=== PATIENT | male | born 1960 | race American Indian/Alaskan Native ===

== ENCOUNTER 2021-08-26 23:08 | Inpatient (IN) | payer OTHER ==
[2021-08-27] MEDS ORDERED: ASPIRIN 325 MG TAB PO ONE (02:14)
[2021-08-27] MEDS ORDERED: SODIUM CHLORIDE 0.9% 1000 ML 1,000 ML IV ONE (02:14)
[2021-08-27] MEDS ORDERED: KETOROLAC 30 MG/1 ML INJ IV ONE (02:15)
--- NOTE | 2021-08-27 02:55 | XRay Report ---
CHEST 1 VIEW 08/27/2021 2:36 AM INDICATION / CLINICAL INFORMATION: Chest Pain. COMPARISON: None available. FINDINGS: SUPPORT DEVICES: None. HEART / MEDIASTINUM: No significant abnormality. LUNGS / PLEURA: No significant pulmonary or pleural abnormality. No pneumothorax. ADDITIONAL FINDINGS: No significant additional findings. IMPRESSION: 1. No acute findings. Signer Name: Feliberto Jacobs DO Signed: 08/27/2021 2:51 AM Workstation Name: [id number]
[2021-08-27 03:00] LABS: Basophils # (Auto) 0.1 K/mm3 (0.0-0.1); Basophils % (Auto) 1.1 % (0.0-1.8); Eosinophils # (Auto) 0.2 K/mm3 (0.0-0.4); Eosinophils % (Auto) 4.4 % (0.0-4.3); Hematocrit 39.8 % (35.5-45.6); Hemoglobin 13.1 gm/dl (11.8-15.2); Lymphocytes # (Auto) 1.7 K/mm3 (1.2-5.4); Mean Corpuscular HGB Conc 33 % (32-34); Mean Corpuscular Volume 91 fl (84-94); Monocytes # (Auto) 0.5 K/mm3 (0.0-0.8); Monocytes % (Auto) 10.4 % (0.0-7.3); Platelet Count 246 K/mm3 (140-440); Red Blood Count 4.39 M/mm3 (3.65-5.03); Red Cell Distribution Width 13.8 % (13.2-15.2)
[2021-08-27 03:19] LABS: Alanine Aminotransferase 15 units/L (7-56); Albumin 4.2 g/dL (3.9-5); BUN/Creatinine Ratio 20; Blood Urea Nitrogen 18 mg/dL (9-20); Calcium 10.2 mg/dL (8.4-10.2); Hemolysis Index 7
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
--- NOTE | 2021-08-27 05:55 | Emergency Department Report ---
ED General Adult HPI - General Chief complaint: Extremity Injury, Upper Stated complaint: LF ARM PAIN, HYPERTENTION Time Seen by Provider: 08/27/21 02:08 Source: EMS Mode of arrival: Stretcher Limitations: No Limitations - History of Present Illness Initial comments: LEFT ARM PAIN, DENIES INJURY, TRAUMA AT THIS TIME, LEFT SIDE PAIN NO RADIATION, DENIES CHEST PAIN -: Sudden, hour(s) Location: chest Radiation: non-radiation Severity scale (0 -10): 6 Quality: aching Consistency: intermittent Improves with: none Associated Symptoms: denies: denies other symptoms, confusion, chest pain, cough Treatments Prior to Arrival: none - Related Data Allergies Allergy/AdvReac Type Severity Reaction Status Date / Time No Known Allergies Allergy Verified 08/27/21 02:46 ED Review of Systems ROS: Stated complaint: LF ARM PAIN, HYPERTENTION Other details as noted in HPI Constitutional: denies: chills, fever Eyes: denies: eye pain, eye discharge, vision change ENT: denies: ear pain, throat pain Respiratory: denies: cough, shortness of breath, wheezing Cardiovascular: denies: chest pain, palpitations Endocrine: no symptoms reported Gastrointestinal: denies: abdominal pain, nausea, diarrhea Genitourinary: denies: urgency, dysuria Musculoskeletal: denies: back pain, joint swelling, arthralgia Skin: denies: rash, lesions Neurological: denies: headache, weakness, paresthesias Psychiatric: denies: anxiety, depression Hematological/Lymphatic: denies: easy bleeding, easy bruising ED Past Medical Hx - Past Medical History Previous Medical History?: No - Surgical History Past Surgical History?: No - Social History Smoking Status: Unknown if ever smoked ED Physical Exam - General Limitations: No Limitations General appearance: alert, in no apparent distress - Head Head exam: Present: atraumatic, normocephalic - Eye Eye exam: Present: normal appearance - ENT ENT exam: Present: mucous membranes moist - Neck Neck exam: Present: normal inspection - Respiratory Respiratory exam: Present: normal lung sounds bilaterally. Absent: respiratory distress - Cardiovascular Cardiovascular Exam: Present: regular rate, normal rhythm. Absent: systolic murmur, diastolic murmur, rubs, gallop - GI/Abdominal GI/Abdominal exam: Present: soft, normal bowel sounds - Rectal Rectal exam: Present: deferred - Extremities Exam Extremities exam: Present: normal inspection - Back Exam Back exam: Present: normal inspection - Neurological Exam Neurological exam: Present: alert, oriented X3 - Psychiatric Psychiatric exam: Present: normal affect, normal mood - Skin Skin exam: Present: warm, dry, intact, normal color. Absent: rash ED Course Vital Signs 08/26/21 08/27/21 08/27/21 23:21 03:29 03:30 Temperature 99 F Pulse Rate 88 68 Respiratory 18 18 18 Rate Blood Pressure 200/112 Blood Pressure 163/86 [Left] O2 Sat by Pulse 100 98 Oximetry ED Medical Decision Making - Lab Data Result diagrams: 08/27/21 02:42 08/27/21 02:42 - EKG Data -: EKG Interpreted by Me - EKG Data Interpretation: other (mobitz type 2 ) - Radiology Data Radiology results: report reviewed, image reviewed Critical care attestation.: If time is entered above; I have spent that time in minutes in the direct care of this critically ill patient, excluding procedure time. ED Disposition Clinical Impression: Mobitz II, Left shoulder pain Disposition: ADMITTED INPATIENT Is pt being admited?: Yes Does the pt Need Aspirin: Yes Condition: Stable Referrals: PRIMARY CARE, [Primary Care Provider] - 3-5 Days
[2021-08-27] MEDS ORDERED: ONDANSETRON 4 MG/2 ML INJ IV PRN (06:07)
[2021-08-27] MEDS ORDERED: traMADol 50 MG TAB PO PRN (06:07)
[2021-08-27] MEDS ORDERED: ACETAMINOPHEN 325 MG TAB PO PRN ×2 (06:07)
[2021-08-27] MEDS ORDERED: MORPHINE 2 MG/1 ML INJ IV PRN (06:12)
[2021-08-27] MEDS ORDERED: MORPHINE 4 MG/1 ML INJ IV PRN ×2 (06:12)
[2021-08-27] MEDS ORDERED: MAGNESIUM HYDROXIDE (MOM) ORAL LIQD UDC PO PRN (06:12)
--- NOTE | 2021-08-27 06:25 | History and Physical Report ---
History of Present Illness Date of examination: 08/27/21 Date of admission: 08/27/2021 Chief complaint: Chest pain History of present illness: 60-year-old -[place] male with no significant past medical history presented to the emergency room today complaining of left shoulder pain radiating towards the left upper chest. Symptoms were said to have started overnight. He denies any injury to the left shoulder. He denies any fall. Patient denies any nausea vomiting and no abdominal pain. Denies any headache or dizziness and no diaphoresis. Upon arrival in the emergency room, her initial EKG was sinus tach which later transitioned into Mobitz type I. Chest x-ray and shoulder history were unremarkable. Labs were also unremarkable. Patient being admitted of with chest pain and abnormal EKG. Past History Past Medical History: No medical history Past Surgical History: No surgical history Social history: smoking (Current daily smoker) Family history: no significant family history Medications and Allergies Allergies Allergy/AdvReac Type Severity Reaction Status Date / Time No Known Allergies Allergy Verified 08/27/21 02:46 Review of Systems Constitutional: no fever, no chills Ears, nose, mouth and throat: no nasal congestion, no sore throat Cardiovascular: chest pain, no orthopnea, no palpitations Respiratory: no cough, no shortness of breath Gastrointestinal: no abdominal pain, no nausea, no vomiting, no diarrhea Genitourinary Male: no dysuria, no hematuria, no flank pain Integumentary: no rash, no pruritis Neurological: no headaches, no confusion Psychiatric: no anxiety, no depression Endocrine: no polyphagia, no polydipsia, no polyuria Exam - Constitutional Vitals: Temp Pulse Resp BP Pulse Ox 99 F 68 18 163/86 98 08/26/21 23:21 08/27/21 03:30 08/27/21 03:59 08/27/21 03:30 08/27/21 03:30 General appearance: Present: no acute distress, well-nourished - EENT Eyes: Present: PERRL, EOM intact. Absent: scleral icterus ENT: hearing intact, clear oral mucosa, dentition normal - Neck Neck: Present: supple, normal ROM - Respiratory Respiratory effort: normal Respiratory: bilateral: CTA - Cardiovascular Rhythm: regular Heart Sounds: Present: S1 & S2. Absent: gallop, systolic murmur, diastolic murmur, rub, click - Extremities Extremities: no ischemia, pulses intact, pulses symmetrical, No edema, normal temperature, normal color, Full ROM Peripheral Pulses: within normal limits - Abdominal General gastrointestinal: Present: soft, non-tender, non-distended, normal bowel sounds. Absent: mass - Integumentary Integumentary: Present: clear, warm, dry, normal turgor. Absent: rash - Musculoskeletal Musculoskeletal: strength equal bilaterally - Psychiatric Psychiatric: appropriate mood/affect, intact judgment & insight, memory intact - Neurologic Neurologic: CNII-XII intact, no focal deficits, moves all extremities HEART Score - HEART Score History: Moderately suspicious EKG: Non-specific Age: 45-65 Risk factors: 1-2 risk factors Troponin: Troponin T < 0.010 ng/mL (0.00-0.029) 08/27/21 02:42 Troponin: < normal limit HEART Score: 4 Results - Labs CBC & Chem 7: 08/27/21 02:42 08/27/21 06:23 Labs: Abnormal lab results 08/27/21 08/27/21 Range/Units 02:42 02:42 Elbert % (Auto) 10.4 H (0.0-7.3) % Eos % (Auto) 4.4 H (0.0-4.3) % Glucose 115 H (75-100) mg/dL Assessment and Plan - Patient Problems (1) Chest pain Current Visit: Yes Status: Acute Plan to address problem: Patient admitted and placed on telemetry. We will check serial cardiac enzymes. Will request cardiology evaluation and recommendation. (2) Mobitz II Current Visit: Yes Status: Acute Plan to address problem: Patient will be closely monitored on telemetry. We will also monitor chemistry. Await cardiology evaluation and recommendation. (3) DVT prophylaxis Current Visit: Yes Status: Acute Plan to address problem: Patient placed on subcutaneous heparin. (4) Full code status Current Visit: Yes Status: Acute Plan to address problem: Patient is full code.
[2021-08-27 07:24] LABS: BUN/Creatinine Ratio 20; Blood Urea Nitrogen 16 mg/dL (9-20); Calcium 9.1 mg/dL (8.4-10.2); Hemolysis Index 2
[2021-08-27] MEDS ORDERED: REGADENOSON 0.4 MG/5 ML INJ IV ONE (08:29)
--- NOTE | 2021-08-27 11:43 | Vascular Lab Report ---
DUPLEX DOPPLER UPPER EXTREMITY VENOUS, LEFT INDICATION / CLINICAL INFORMATION: PAIN; R/O DVT. TECHNIQUE: Duplex doppler imaging was performed through the veins of the left upper extremity using venous compr ession and other maneuvers. COMPARISON: None available. FINDINGS: LEFT INTERNAL JUGULAR VEIN: Negative. LEFT SUBCLAVIAN VEIN: Negative. LEFT AXILLARY VEIN: Negative. LEFT BRACHIAL VEIN: Negative. LEFT FOREARM VEINS: Negative. LEFT BASILIC VEIN (SUPERFICIAL): Negative. ADDITIONAL FINDINGS: None. IMPRESSION: 1. No sonographic evidence for DVT. Signer Name: Wilson Cheng MD Signed: 08/27/2021 11:38 AM Workstation Name: [id number]
--- NOTE | 2021-08-27 12:22 | Consultation ---
History of Present Illness Consult date: 08/27/21 Consult reason: chest pain History of present illness: The patient is a 60-year-old man with a history of hypertension, noncompliant with medical therapy or outpatient physician care. He reports no prior cardiac history. He presents to the hospital with predominantly left arm pain, which radiated to the shoulder. There was some worsening of the pain with movement of the left arm. There was no exertional component. He presented to the emergency room and was evaluated and referred for admission. An x-ray of the left should er was reported unremarkable. Cardiac work-up so far, EKG was a sinus rhythm, with a single cycle of Wenckebach Mobitz 1, otherwise normal ECG, no ST or T wave changes of ischemia. The serial troponin levels were normal. Chest x-ray was normal-sized cardiac silhouette and clear lungs. Past History Past Medical History: hypertension Past Surgical History: No surgical history Social history: smoking (Current daily smoker) Family history: no significant family history Medications and Allergies Allergies Allergy/AdvReac Type Severity Reaction Status Date / Time No Known Allergies Allergy Verified 08/27/21 02:46 Active Meds: Active Medications Acetaminophen (Acetaminophen 325 Mg Tab) 650 mg PO Q4H PRN PRN Reason: Pain MILD(1-3)/Fever >100.5/MUNOZ Aspirin (Aspirin Ec 325 Mg Tab) 325 mg PO QDAY RONNI Magnesium Hydroxide (Magnesium Hydroxide (Mom) Oral Liqd Udc) 30 ml PO Q4H PRN PRN Reason: Constipation Morphine Sulfate (Morphine 2 Mg/1 Ml Inj) 2 mg IV Q4H PRN PRN Reason: Pain, Moderate (4-6) Morphine Sulfate (Morphine 4 Mg/1 Ml Inj) 4 mg IV Q4H PRN PRN Reason: Pain , Severe (7-10) Morphine Sulfate (Morphine 4 Mg/1 Ml Inj) 2 mg IV Q5MIN PRN PRN Reason: Chest Pain unrelieved by NTG Ondansetron HCl (Ondansetron 4 Mg/2 Ml Inj) 4 mg IV Q8H PRN PRN Reason: Nausea And Vomiting Sodium Chloride (Sodium Chloride 0.9% 10 Ml Flush Syringe) 10 ml IV BID RONNI Sodium Chloride (Sodium Chloride 0.9% 10 Ml Flush Syringe) 10 ml IV PRN PRN PRN Reason: LINE FLUSH Tramadol HCl (Tramadol 50 Mg Tab) 50 mg PO Q6H PRN PRN Reason: Pain, Moderate (4-6) Review of Systems Cardiovascular: chest pain, no orthopnea, no palpitations, no rapid/irregular heart beat, no edema, no syncope, no lightheadedness, no shortness of breath Physical Examination Vital Signs Temp Pulse Resp BP Pulse Ox 99 F 88 18 200/112 100 08/26/21 23:21 08/26/21 23:21 08/26/21 23:21 08/26/21 23:21 08/26/21 23:21 General appearance: no acute distress HEENT: Positive: PERRL Neck: Positive: neck supple Cardiac: Positive: Reg Rate and Rhythm Lungs: Positive: clear to auscultation Neuro: Positive: Grossly Intact Abdomen: Positive: Soft Male genitourinary: Positive: deferred Skin: Positive: Clear Extremities: Absent: edema Results 08/27/21 02:42 08/27/21 06:23 Cardiac Enzymes 08/27/21 Range/Units 02:42 AST 24 (5-40) units/L CBC 08/27/21 Range/Units 02:42 WBC 5.0 (4.5-11.0) K/mm3 RBC 4.39 (3.65-5.03) M/mm3 Hgb 13.1 (11.8-15.2) gm/dl Hct 39.8 (35.5-45.6) % Plt Count 246 (140-440) K/mm3 Lymph # (Auto) 1.7 (1.2-5.4) K/mm3 [place]arnett # (Auto) 0.5 (0.0-0.8) K/mm3 Eos # (Auto) 0.2 (0.0-0.4) K/mm3 Baso # (Auto) 0.1 (0.0-0.1) K/mm3 Comprehensive Metabolic Panel 08/27/21 08/27/21 Range/Units 02:42 06:23 Sodium 142 141 (137-145) mmol/L Potassium 4.5 3.7 (3.6-5.0) mmol/L Chloride 101.9 104.3 (98-107) mmol/L Carbon Dioxide 29 27 (22-30) mmol/L BUN 18 16 (9-20) mg/dL Creatinine 0.9 0.8 (0.8-1.3) mg/dL Glucose 115 H 118 H (75-100) mg/dL Calcium 10.2 9.1 (8.4-10.2) mg/dL AST 24 (5-40) units/L ALT 15 (7-56) units/L Alkaline Phosphatase 99 (35-129) units/L Total Protein 7.1 (6.3-8.2) g/dL Albumin 4.2 (3.9-5) g/dL EKG interpretations - Telemetry EKG Rhythm: Sinus Rhythm (With a single cycle of Wenkebach, otherwise normal ECG) Assessment and Plan - Patient Problems (1) Chest pain Current Visit: Yes Status: Acute Plan to address problem: Patient's chest pain is atypical, mostly consisting of left arm pain with some decrease in range of motion. Consider musculoskeletal pain. For cardiac work- up, will order a Lexiscan thallium stress test. (2) Uncontrolled hypertension Current Visit: Yes Status: Acute Plan to address problem: Patient presented with uncontrolled hypertension with systolic blood pressures of 200. We will treat his hypertension with Procardia XL 60 mg daily.
--- NOTE | 2021-08-27 12:53 | Nuclear Medicine Report ---
APPROVED REPORT Exam: Nuclear Stress Test Indication: Chest pain BMI: 0 Stress Test Details HR Max Heart Rate (APMHR): 160 bpm Target HR (85% APMHR): 136 bpm BP ECG Resting ECG: Sinus Rhythm Stress ECG: Sinus Rhythm ST Change: None Arrhythmia: None Recovery ECG: Sinus Rhythm Recovery ST Change: None Recovery Arrhythmia: None Stress ECG Conclusion No chest pain, no ST changes of ischemia with pharmacologic stress. Myocardial perfusion images are pending. NM EXAM: Myocardial Perfusion REST/STRESS Imaging Protocol: Rest Tc-99m/Stress Tc-99m 1 day Resting Data Rest SPECT myocardial perfusion imaging was performed in supine position 45 minutes following the intravenous injection of 10 mCi of Tc-99m Myoview. Time of rest injection: 0700 Date: 08/27/2021 Pharmacologic Stress Pharmacologic stress test was performed by injecting Regadenoson 0.4 mg IV push followed by the intravenous injection of 28 mCi of Tc-99m Myoview. Time of stress injection: 12:00 Date: 08/27/2021 Gated Stress SPECT was performed 30 minutes after stress injection. The images were gated to evaluate regional wall motion and calculate left ventricular ejection fraction. Study Quality Study: excellent Lung Uptake: Normal Study Data TID = 0.87. Perfusion Wall Motion There is normal left ventricular chamber size and systolic function, ejection fraction 55%. Nuclear Conclusion ECG Findings: negative for ischemia Clinical Findings: negative for ischemia Nuclear Findings: positive for ischemia Left Ventricular Function: normal Risk Study: moderate Abnormal study, demonstrating a small to moderate size, reversible anteroapical defect. Clinical correlation is recommended. Conclusion No chest pain, no ST changes of ischemia with pharmacologic stress. Myocardial perfusion images are pending.
--- NOTE | 2021-08-27 12:58 | Event Note ---
Date: 08/27/21 Thallium stress test was abnormal, we will order a cardiac catheterization for tomorrow morning.
[2021-08-27] MEDS ORDERED: SODIUM CHLORIDE 0.9% 500 ML 500 ML IV SCH (13:00)
--- NOTE | 2021-08-27 13:19 | Event Note ---
Date: 08/27/21 Patient examined after stress test. Aware of plan for cardiac cath in the morning. Currently no longer experiencing chest pain. He denies any past medical history and is not taking any medications. We will continue with current care plan.
[2021-08-27] MEDS: NIFEdipine XL 60 MG TAB PO SCH (14:16)
[2021-08-27] MEDS: NITROGLYCERIN 2% OINT 1 GM TP SCH (14:16)
[2021-08-27] MEDS: HEPARIN 5,000 UNIT/1 ML VIAL SUB-Q SCH ×2 (14:17→21:43)
[2021-08-27] MEDS: METOPROLOL TARTRATE 25 MG TAB PO SCH (21:30)
[2021-08-28] MEDS: NITROGLYCERIN 2% OINT 1 GM TP SCH ×3 (05:48→14:30)
[2021-08-28 05:55] LABS: Basophils % (Auto) 0.9 % (0.0-1.8); Eosinophils # (Auto) 0.2 K/mm3 (0.0-0.4); Eosinophils % (Auto) 4.2 % (0.0-4.3); Hemoglobin 13.3 gm/dl (11.8-15.2); Lymphocytes # (Auto) 1.8 K/mm3 (1.2-5.4); Lymphocytes % (Auto) 40.1 % (13.4-35.0); Mean Corpuscular HGB Conc 33 % (32-34); Mean Corpuscular Volume 91 fl (84-94); Monocytes # (Auto) 0.5 K/mm3 (0.0-0.8); Monocytes % (Auto) 10.4 % (0.0-7.3); Platelet Count 228 K/mm3 (140-440); Red Blood Count 4.42 M/mm3 (3.65-5.03)
[2021-08-28 06:02] LABS: INR 0.83 (0.87-1.13)
[2021-08-28 06:03] LABS: Partial Thromboplastin Time 23.5 Sec. (24.2-36.6)
[2021-08-28 06:08] LABS: BUN/Creatinine Ratio 17; Blood Urea Nitrogen 15 mg/dL (9-20); Calcium 9.1 mg/dL (8.4-10.2); Hemolysis Index 6
[2021-08-28] MEDS: ASPIRIN EC 325 MG TAB PO SCH ×2 (08:10→10:43)
[2021-08-28] MEDS ORDERED: VERAPAMIL 5 MG/2 ML INJ ONE (08:21)
[2021-08-28] MEDS ORDERED: HEPARIN/NS 5000 UNIT/500ML 1,000 ML IR ONE (08:21)
[2021-08-28] MEDS ORDERED: HEPARIN 10,000 UNITS/10 ML VIAL ONE (08:21)
[2021-08-28] MEDS ORDERED: LIDOCAINE (2%) 20 MG/1 ML VIAL 50 ML MDV INFILTRATI ONE (08:22)
[2021-08-28] MEDS ORDERED: NITROGLYCERIN SYRINGE 3 ML ONE (08:22)
[2021-08-28] MEDS ORDERED: MIDAZOLAM 2 MG/2 ML INJ ONE (08:23)
[2021-08-28] MEDS ORDERED: fentaNYL 100 MCG/2 ML INJ ONE (08:23)
[2021-08-28] MEDS ORDERED: SODIUM CHLORIDE 0.9% 500 ML 500 ML IV ONE (08:36)
[2021-08-28] MEDS ORDERED: SODIUM CHLORIDE 0.9% 500 ML 500 ML ONE (08:38)
--- NOTE | 2021-08-28 10:02 | Event Note ---
Date: 08/28/21 Cardiac catheterization completed via the right radial approach, no complications. We found angiographically normal coronary arteries, normal left ventricular systolic function with ejection fraction 50 to 55%. No further cardiac work-up, patient is stable for discharge from cardiac standpoint.
[2021-08-28] MEDS ORDERED: SODIUM CHLORIDE 0.9% 1000 ML 1,000 ML IV SCH (10:15)
[2021-08-28] MEDS: NIFEdipine XL 60 MG TAB PO SCH (10:32)
[2021-08-28] MEDS: METOPROLOL TARTRATE 25 MG TAB PO SCH (10:34)
[2021-08-28] MEDS: HEPARIN 5,000 UNIT/1 ML VIAL SUB-Q SCH (10:34)
[2021-08-28] MEDS ORDERED: traMADol 50 MG TAB PO PRN (11:00)
--- NOTE | 2021-08-28 11:59 | Discharge Summary ---
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 Initial EKG showed Mobitz type I. He was admitted for ACS rule out. Nuclear stress test was abnormal and de monstrated small to moderate size reversible anteroapical defect. Echocardiogram showed normal ejection fraction. Left upper extremity duplex was negative for DVT. Cardiac catheterization showed angiographically normal coronary arteries. Once stable he was discharged home with new antihypertensive medications. Disposition: 30 STILL A PATIENT Final Discharge Diagnosis (Prints w/discharge instructions): Chest pain, ACS ruled out. Uncontrolled hypertension. Mobitz type I seen on EKG Time spent for discharge: 35 minutes Core Measure Documentation - Palliative Care Palliative Care/ Comfort Measures: Not Applicable - Core Measures Any of the following diagnoses?: none Exam - Physical Exam Narrative exam: GENERAL: Well-developed well-nourished. In no acute distress. HEENT: Normocephalic. Atraumatic. NECK: Supple. CHEST/LUNGS: CTAB on room air HEART/CARDIOVASCULAR: RRR. No murmur, rubs or gallops appreciated. ABDOMEN: +BS. NT/ND. NEURO: No focal motor deficit. Follows all commands and is ambulatory. EXTREMITIES: No cyanosis, clubbing or edema. PSYCH: Cooperative. - Constitutional Vitals: Temp Pulse Resp BP Pulse Ox 97.7 F 53 L 18 135/70 96 08/28/21 11:40 08/28/21 11:40 08/28/21 11:40 08/28/21 11:40 08/28/21 11:40 Plan Care Plan Goals: Please follow-up with your primary care provider. Start taking all medications as prescribed. Follow up with: PRIMARY CARE, [Primary Care Provider] - 3-5 Days Prescriptions: Aspirin EC [Ecotrin] 325 mg PO QDAY 30 Days #30 tablet Metoprolol [Lopressor TAB] 12.5 mg PO BID 30 Days #30 tablet NIFEdipine XL [Procardia Xl] 60 mg PO QDAY 30 Days #30 tablet
--- NOTE | 2021-08-28 14:06 | Cardiac Catherization Report ---
DATE OF SERVICE: 08/28/2021 REASON FOR PROCEDURE: Chest pain and abnormal thallium stress test. PROCEDURES: 1. Left heart catheterization. 2. Selective left and right coronary angiography. 3. Left ventricular angiography. 4. Sedation time start 930, end 943. DESCRIPTION OF PROCEDURE: The patient was prepped and draped in a sterile fashion after informed consent. The right radial cath site was prepped and draped after negative Michele's test. The right radial artery was entered using Seldinger technique followed by placement of a 6-[place] hydrophilic sheath. A routine radial cocktail was administered via the sheath. Selective left and right coronary angiography was performed using #3.5 left Kiana and a #4 right Kiana. The right Kiana catheter was used for left ventricular angiography via hand injection. The catheters were then removed, sheath removed and hemostasis achieved using a TR Band. The patient was returned to the postprocedure unit in stable condition. There were no complications. FINDINGS: HEMODYNAMICS: Left ventricular end-diastolic pressure was 10. Ascending aortic pressure was 139/78. There was no significant pressure gradient on pullback across the aortic valve. CORONARY ANGIOGRAPHY: The left main coronary artery was angiographically normal. The left anterior descending artery and its diagonal branches were angiographically normal. The circumflex was a large, dominant system, also angiographically normal. The right coronary artery was small, nondominant and similarly free of significant disease. Left ventricular systolic function was normal, ejection fraction 50-55% following an extrasystolic beat. CONCLUSION: 1. Angiographically normal coronary arteries in the left circumflex dominant system. 2. Well preserved left ventricular systolic function, ejection fraction 50-55%. RECOMMENDATIONS: Risk factor modification and medical therapy. TID: [id number] RECEIPT: [id number] ROSA M/SANDHYA
[2021-08-28 15:45] VITALS: BP 119/67
--- NOTE | 2021-09-01 18:14 | Electrocardiograph Report ---
[facility] Test Date: 2021-08-27 Test Time: 04:33:20 Pat Name: ROSEY JIMENEZ Department: Room: A480 1 Gender: M Gin Clerk: GLYNN : 1960 Requested By: DEMETRICE KENYON Order Number: [id number] Reading MD: Andrea Quiñones Measurements Intervals [place] Rate: 114 P: 92 [place]: 185 QRS: 37 QRSD: 87 T: 26 QT: 346 QTc: 478 Interpretive Statements Sinus tachycardia No previous ECG available for comparison Electronically Signed On 09-01-2021 18:14:22 EDT by Andrea Quiñones
--- NOTE | 2021-09-01 18:15 | Electrocardiograph Report ---
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
--- NOTE | 2021-09-01 18:21 | Electrocardiograph Report ---
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
--- NOTE | 2021-09-01 18:26 | Electrocardiograph Report ---
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
== END 2021-08-28 17:10 | disposition home or self-care (01) | DRG 287 ==
LOC: ED 23:08 → 4A 08-27 06:07
PROVIDERS: ADMIT Internal Medicine Geriatric Medicine; ATTEND Student in an Organized Health Care Education/Training Program
PROC: 4A023N7 Measurement of Cardiac Sampling and Pressure, Left Heart, Percutaneous Approach (ICD-10-PCS; principal; 2021-08-28)
PROC: B2111ZZ Fluoroscopy of Multiple Coronary Arteries using Low Osmolar Contrast (ICD-10-PCS; 2021-08-28)
PROC: B2151ZZ Fluoroscopy of Left Heart using Low Osmolar Contrast (ICD-10-PCS; 2021-08-28)
DX: I44.1 Atrioventricular block, second degree (principal); I10 Essential (primary) hypertension
CPT/HCPCS: 36415; 71045; 78452; 80048; 80053; 83735; 84484; 85025; 85610; 85730; 93005; 93017; 93306; 93458; 99406; G0378; J1815; J3490; A9502; C1894; C8929; J1644; J1885; J2250; J2270; J2785; J3010; J7030; J7040; Q9967